=== PATIENT | female | born 1955 | race African-American/Black ===

== ENCOUNTER 2021-01-12 16:46 | Emergency (ER) | payer SELFPAY ==
[~2021-01-12] VITALS: Ht 167.6 cm; Wt 116.0 kg
[~2021-01-12 16:46] MED LIST: LOSA100T3; METO1TAB26
[2021-01-12 16:53] VITALS: BP 120/46
== END 2021-01-12 18:59 | disposition left against medical advice (07) ==
LOC: ER 16:46
DX: Z53.21 Procedure and treatment not carried out due to patient leaving prior to being seen by health care provider (principal)